=== PATIENT | female | born 1940 | race Caucasian/White ===

== ENCOUNTER 2018-02-11 06:17 | Inpatient (IN) | payer MEDICARE, BC ==
[2018-02-05 12:00] LABS: CLARITY,URINE CLOUDY (Clear); COLOR,URINE YELLOW (Yellow); GLUCOSE, URINE NEGATIVE (Neg); KETONES,URINE NEGATIVE (Neg); LEUKOCYTE ESTERASE ,URINE NEGATIVE (Neg); NITRITES, URINE NEGATIVE (Neg); OCCULT BLOOD,URINE NEGATIVE (Neg); PH,URINE 6.5 (4.8-8.0); PROTEIN,URINE NEGATIVE (Neg); UROBILINOGEN,URINE 0.2 E.U/dL (0.2-1.0)
[2018-02-05 12:06] LABS: BASOPHILS # (AUTO) 0.1 X10'3 (0-0.2); BASOPHILS % (AUTO) 0.6 % (0-1); EOSINOPHILS # (AUTO) 0.2 X10'3 (0-0.9); EOSINOPHILS % (AUTO) 2.1 % (0-6); LYMPHOCYTES # (AUTO) 2.8 X10'3 (1.1-4.8); LYMPHOCYTES % (AUTO) 30.5 % (21-51); MEAN CORPUSCULAR HEMOGLOBIN 32.2 PG (27.0-31.0); MEAN CORPUSCULAR HGB CONC 34.8 % (33.0-36.5); MEAN CORPUSCULAR VOLUME 92.5 FL (78-98); MONOCYTES # (AUTO) 0.5 X10'3 (0-0.9); NEUTROPHILS # (AUTO) 5.7 X10'3 (1.8-7.7); NEUTROPHILS % (AUTO) 61.8 % (42-75); PRE OP HEMATOCRIT 40.2 % (35.0-45.0); PRE OP PLATELET COUNT 361 X10'3 (140-440); RED BLOOD COUNT 4.34 X10'6 (4.20-5.60); RED CELL DISTRIBUTION WIDTH 12.8 % (11.5-14.5)
[2018-02-05 12:08] LABS: PRE OP PROTIME 10.1 SECONDS (9.0-12.0)
[2018-02-05 12:10] LABS: UA COLLECTION TYPE CLN CATCH MIDSTREAM
[2018-02-05 12:11] LABS: HEMOGLOBIN A1C 6.9 % (4.5-6.2)
[2018-02-05 12:12] LABS: ALBUMIN 3.9 G/DL (3.4-5.0); ALKALINE PHOSPHATASE 81 IU/L (46-116); BLOOD UREA NITROGEN 23 MG/DL (7-18); BUN/CREATININE RATIO 18.4 (6.6-38.0); CALCIUM 9.7 MG/DL (8.5-10.1); CHLORIDE 102 MMOL/L (99-107); CREATININE 1.25 MG/DL (0.40-0.90); PRE OP ALT 37 U/L (30-65); PRE OP ANION GAP 7 (8-16); PRE OP AST 26 U/L (10-37); PRE OP BILIRUB, TOTAL 0.5 MG/DL (0.0-1.0); PRE OP GLUCOSE 132 MG/DL (70-104); PRE OP SODIUM 142 MMOL/L (135-145); TOTAL CARBON DIOXIDE 32.6 MMOL/L (24-32); TOTAL PROTEIN 7.7 G/DL (6.4-8.2); eGFR 42 ML/MIN
[2018-02-05 12:13] LABS: MUCUS STRANDS FEW /LPF (Neg); SQUAMOUS EPITHELIAL CELL,UR FEW /LPF (FEW)
[2018-02-05 12:14] LABS: BACTERIA,URINE 1+ /HPF (Neg)
[2018-02-05 12:14] LABS: PRE OP POTASSIUM 3.2 MMOL/L (3.4-5.1)
[2018-02-05 12:24] LABS: RBC,URINE 0-2 /HPF (0-2); WBC,URINE 0-4 /HPF (0-4)
[2018-02-11] VITALS (20 sets, daily range): BP systolic 82–135; BP diastolic 44–80
[~2018-02-11] VITALS: Ht 149.9 cm; Wt 67.0 kg
[~2018-02-11 06:17] MED LIST: ASPI81TA52 PO; ATEN1TAB3 PO; ATOR20TA PO; Cefazolin 2GM/50ML dext iso,osmotic IVPB IV ONE; DOCUMENT DATE & TIME OF BETA-BLOCKER PO ONE; FENO160T13 PO; GLIP10TA11 PO; OMEP40CA37 PO; PIOG45TA5 PO; VANCOMYCIN INJ 1000 MG in NORMAL SALINE 250ml IV.SOLN IV ONE; acetaminophen 325mg tablet PO ONE; celeCOXIB 100mg capsule PO ONE; famotidine 20mg tablet PO ONE; gabapentin 300mg capsule PO ONE; metoclopramide 5 mg/ml inj IV ONE; oxyCODONE SR 10mg (sust. release) tab PO ONE; ringers solution, lacted 1,000 ML IV SCH
[2018-02-11] MEDS ORDERED: magnesium hydroxide 30ml (MOM) UD suspension PO PRN (06:50)
[2018-02-11] MEDS ORDERED: dextrose ORAL solution 15 GM/59 ML bottle PO PRN ×2 (06:50)
[2018-02-11] MEDS ORDERED: glucagon, human recombinant 1mg kit SUBCUT PRN (06:50)
[2018-02-11] MEDS ORDERED: MESSAGE TO PHARMACY PO ONE (06:50)
[2018-02-11] MEDS ORDERED: HYDROcodone/acetaminophen 10/325mg tab PO PRN ×2 (06:50)
[2018-02-11] MEDS ORDERED: dextrose 50%-water 50ml dispensing syringe IV PRN ×2 (06:50)
[2018-02-11] MEDS ORDERED: bisacodyl 10mg suppository rectal RC PRN (06:50)
[2018-02-11] MEDS ORDERED: acetaminophen 325mg tablet PO PRN (06:50)
[2018-02-11] MEDS ORDERED: diphenhydrAMINE 25mg capsule PO PRN ×2 (06:50)
[2018-02-11] MEDS ORDERED: HYDROmorphone 1 mg/ml syringe IV PRN ×2 (06:50)
[2018-02-11] MEDS ORDERED: ROPIVAcaine inj 250 MG, epiNEPHrine inj 0.5 MG, CloNIDine/PF inj 80 MCG in normal salin... SQ ONE (06:55)
[2018-02-11] MEDS ORDERED: LIDOcaine 1% (10mg/ml) 2ml vial ONE (06:58)
[2018-02-11] MEDS ORDERED: vancomycin 1,000mg inj ONE (07:08)
[2018-02-11] MEDS ORDERED: ketorolac trometh. 30mg/ml inj. ONE (07:08)
[2018-02-11] MEDS ORDERED: pantoprazole 40mg Tablet.DR PO PRN (07:30)
[2018-02-11] MEDS ORDERED: atenolol 50mg tablet PO SCH (08:00)
[2018-02-11] MEDS ORDERED: CHLORTHALIDONE PO SCH (08:00)
[2018-02-11] MEDS: atorvastatin 20mg tablet PO SCH (08:00)
[2018-02-11] MEDS ORDERED: ATENOLOL PO SCH (08:00)
[2018-02-11] MEDS: fenofibrate 145mg tablet PO SCH (08:00)
[2018-02-11 08:02] LABS: ISTAT CREATININE 0.9 mg/dL (0.6-1.1); ISTAT HGB 12.6 g/dl (12.0-16.0); ISTAT IONIZED CALCIUM 1.24 mmol/L (1.03-1.32); ISTAT K 3.4 mmol/L (3.5-5.1); POC BUN/CREATININE RATIO 22.2 (6.6-38.0)
[2018-02-11] MEDS ORDERED: tranexamic acid inj. 1,000 MG in normal saline 100ml IV soln 90 ML IV ONE (08:20)
[2018-02-11] MEDS ORDERED: atenolol 50mg tablet PO ONE (08:20)
[2018-02-11] MEDS ORDERED: tetracaine 1% (10mg/ml) pres. free inj. ONE (08:36)
[2018-02-11] MEDS ORDERED: BUPIVAcaine/PF 7.5mg/ml (0.75%) 10ml vial ONE (08:36)
[2018-02-11] MEDS ORDERED: MIDAZolam 1mg/ml 10ml vial ONE (08:38)
[2018-02-11] MEDS ORDERED: fentaNYL/PF 50MCG/1 ML 2ML syringe ONE (08:38)
[2018-02-11] MEDS ORDERED: morphine /PF 1mg/ml 10ml inj. ONE (08:42)
[2018-02-11] MEDS ORDERED: LIDOcaine 2% (20mg/ml) 5ml vial ONE (08:44)
[2018-02-11] MEDS ORDERED: propofol inj 20 ML IV ONE (08:44)
[2018-02-11] MEDS ORDERED: dexamethasone sod phosphate 4mg/ml inj. ONE (09:17)
[2018-02-11] MEDS ORDERED: ondansetron/PF 4mg/2ml inj ONE (09:17)
[2018-02-11] MEDS ORDERED: hydrALAZINE 20mg/ml inj. IV PRN (09:45)
[2018-02-11] MEDS ORDERED: labetalol 20mg/4ml (5mg/ml) syringe IV PRN (09:45)
[2018-02-11] MEDS ORDERED: ondansetron/PF 4mg/2ml inj IV PRN (09:45)
[2018-02-11] MEDS ORDERED: fentaNYL/PF 50MCG/1 ML 2ML syringe IV PRN ×2 (09:45)
[2018-02-11] MEDS ORDERED: morphine 4 MG/ML inj SYRINge IV PRN ×2 (09:45)
[2018-02-11] MEDS ORDERED: ringers solution, lacted 1,000 ML IV SCH (09:45)
[2018-02-11] MEDS ORDERED: albumin (Human) 5% 250ml 250 ML IV ONE (10:04)
[2018-02-11] MEDS: ondansetron/PF 4mg/2ml inj IV PRN (11:58)
[2018-02-11] MEDS: potassium cl 20mEq in 1/2 NS 1,000 ML IV SCH ×2 (12:29→20:22)
[2018-02-11] MEDS ORDERED: proCHLORperazine 10 MG/2 ml inj IV PRN (14:45)
[2018-02-11] MEDS: clindamycin-Cleocin 900mg/D5W 50 ML IV SCH ×2 (15:04→23:29)
[2018-02-11] MEDS ORDERED: vancomycin/NS 1 GM ADD-VANTAGE 250 ML IV SCH (20:00)
[2018-02-11] MEDS: sennosides 8.6mg tablet PO SCH (20:39)
[2018-02-11] MEDS: gabapentin 300mg capsule PO SCH (20:39)
[2018-02-12] MEDS: ondansetron/PF 4mg/2ml inj IV PRN (04:15)
[2018-02-12] MEDS: potassium cl 20mEq in 1/2 NS 1,000 ML IV SCH ×3 (04:29→20:29)
[2018-02-12 06:00] VITALS: BP 130/56
[2018-02-12 06:05] LABS: BASOPHILS % (AUTO) 0.3 % (0-1); EOSINOPHILS # (AUTO) 0.2 X10'3 (0-0.9); EOSINOPHILS % (AUTO) 1.3 % (0-6); HEMATOCRIT 29.7 % (35.0-45.0); HEMOGLOBIN 10.3 g/dl (12.0-16.0); LYMPHOCYTES # (AUTO) 1.5 X10'3 (1.1-4.8); LYMPHOCYTES % (AUTO) 12.4 % (21-51); MEAN CORPUSCULAR HEMOGLOBIN 32.3 PG (27.0-31.0); MEAN CORPUSCULAR HGB CONC 34.8 % (33.0-36.5); MEAN CORPUSCULAR VOLUME 92.8 FL (78-98); MEAN PLATELET VOLUME 8.2 FL (7.4-10.4); MONOCYTES # (AUTO) 0.9 X10'3 (0-0.9); MONOCYTES % (AUTO) 7.2 % (2-12); NEUTROPHILS # (AUTO) 9.3 X10'3 (1.8-7.7); NEUTROPHILS % (AUTO) 78.8 % (42-75); PLATELET COUNT 317 X10'3 (140-440); RED CELL DISTRIBUTION WIDTH 13.1 % (11.5-14.5); WHITE BLOOD COUNT 11.8 X10'3 (4.5-11.0)
[2018-02-12 06:12] LABS: ANION GAP 11 (8-16); CHLORIDE 105 MMOL/L (99-107); POTASSIUM 4.1 MMOL/L (3.5-5.1); SODIUM 139 MMOL/L (135-145); TOTAL CARBON DIOXIDE 23.5 MMOL/L (24-32)
[2018-02-12] MEDS: chlorthalidone 25mg tablet PO SCH (08:00)
[2018-02-12] MEDS: gabapentin 300mg capsule PO SCH ×3 (08:19→20:13)
[2018-02-12] MEDS: atenolol 50mg tablet PO SCH (08:19)
[2018-02-12] MEDS: atorvastatin 20mg tablet PO SCH (08:19)
[2018-02-12] MEDS: clindamycin-Cleocin 900mg/D5W 50 ML IV SCH (08:20)
[2018-02-12] MEDS: multivitamins, therapeutics tablet PO SCH (08:20)
[2018-02-12] MEDS: fenofibrate 145mg tablet PO SCH (08:20)
[2018-02-12] MEDS: ascorbic acid 500mg tablet PO SCH ×2 (08:20→20:13)
[2018-02-12] MEDS: aspirin 325mg tablet PO SCH (08:20)
[2018-02-12] MEDS: insulin Lispro (HumaLOG) vial - multi-dose SQ SCH ×3 (09:18→19:29)
[2018-02-12 10:00] VITALS: BP 100/50
[2018-02-12 14:00] VITALS: BP 106/43
[2018-02-12 18:00] VITALS: BP 106/49
[2018-02-12] MEDS: sennosides 8.6mg tablet PO SCH (20:14)
[2018-02-12 22:41] VITALS: BP 111/56
[2018-02-13 06:00] VITALS: BP 120/55
[2018-02-13 06:01] LABS: BASOPHILS % (AUTO) 0.3 % (0-1); EOSINOPHILS # (AUTO) 0.2 X10'3 (0-0.9); EOSINOPHILS % (AUTO) 2.2 % (0-6); HEMATOCRIT 27.7 % (35.0-45.0); HEMOGLOBIN 9.6 g/dl (12.0-16.0); LYMPHOCYTES # (AUTO) 1.9 X10'3 (1.1-4.8); MEAN CORPUSCULAR HGB CONC 34.7 % (33.0-36.5); MEAN CORPUSCULAR VOLUME 92.2 FL (78-98); MEAN PLATELET VOLUME 8.8 FL (7.4-10.4); MONOCYTES # (AUTO) 0.6 X10'3 (0-0.9); MONOCYTES % (AUTO) 6.7 % (2-12); NEUTROPHILS # (AUTO) 6.1 X10'3 (1.8-7.7); NEUTROPHILS % (AUTO) 68.8 % (42-75); PLATELET COUNT 232 X10'3 (140-440); RED BLOOD COUNT 3.01 X10'6 (4.20-5.60); RED CELL DISTRIBUTION WIDTH 13.1 % (11.5-14.5); WHITE BLOOD COUNT 8.8 X10'3 (4.5-11.0)
[2018-02-13] MEDS: multivitamins, therapeutics tablet PO SCH (08:34)
[2018-02-13] MEDS: gabapentin 300mg capsule PO SCH ×3 (08:35→20:38)
[2018-02-13] MEDS: atenolol 50mg tablet PO SCH (08:35)
[2018-02-13] MEDS: ascorbic acid 500mg tablet PO SCH ×2 (08:35→20:06)
[2018-02-13] MEDS: fenofibrate 145mg tablet PO SCH (08:35)
[2018-02-13] MEDS: atorvastatin 20mg tablet PO SCH (08:35)
[2018-02-13] MEDS: aspirin 325mg tablet PO SCH (08:35)
[2018-02-13] MEDS: chlorthalidone 25mg tablet PO SCH (08:35)
[2018-02-13] MEDS: insulin Lispro (HumaLOG) vial - multi-dose SQ SCH ×3 (08:57→19:05)
[2018-02-13 10:00] VITALS: BP 109/48
[2018-02-13 18:00] VITALS: BP 115/59
[2018-02-13] MEDS: sennosides 8.6mg tablet PO SCH (20:39)
[2018-02-13 22:00] VITALS: BP 114/57
[2018-02-14 06:00] VITALS: BP 113/53
[2018-02-14 06:04] LABS: BASOPHILS # (AUTO) 0.1 X10'3 (0-0.2); BASOPHILS % (AUTO) 0.6 % (0-1); EOSINOPHILS # (AUTO) 0.2 X10'3 (0-0.9); EOSINOPHILS % (AUTO) 1.9 % (0-6); HEMATOCRIT 31.9 % (35.0-45.0); LYMPHOCYTES # (AUTO) 2.2 X10'3 (1.1-4.8); LYMPHOCYTES % (AUTO) 22.6 % (21-51); MEAN CORPUSCULAR HGB CONC 34.6 % (33.0-36.5); MEAN CORPUSCULAR VOLUME 92.6 FL (78-98); MEAN PLATELET VOLUME 8.1 FL (7.4-10.4); MONOCYTES # (AUTO) 0.6 X10'3 (0-0.9); MONOCYTES % (AUTO) 6.3 % (2-12); NEUTROPHILS # (AUTO) 6.8 X10'3 (1.8-7.7); NEUTROPHILS % (AUTO) 68.6 % (42-75); PLATELET COUNT 276 X10'3 (140-440); RED BLOOD COUNT 3.44 X10'6 (4.20-5.60); RED CELL DISTRIBUTION WIDTH 13.1 % (11.5-14.5); WHITE BLOOD COUNT 9.9 X10'3 (4.5-11.0)
[2018-02-14] MEDS: aspirin 325mg tablet PO SCH (08:47)
[2018-02-14] MEDS: atorvastatin 20mg tablet PO SCH (08:47)
[2018-02-14] MEDS: gabapentin 300mg capsule PO SCH ×2 (08:47→12:52)
[2018-02-14] MEDS: ascorbic acid 500mg tablet PO SCH (08:47)
[2018-02-14] MEDS: multivitamins, therapeutics tablet PO SCH (08:48)
[2018-02-14] MEDS: chlorthalidone 25mg tablet PO SCH (08:48)
[2018-02-14] MEDS: atenolol 50mg tablet PO SCH (08:48)
[2018-02-14] MEDS: fenofibrate 145mg tablet PO SCH (08:48)
[2018-02-14 10:00] VITALS: BP 112/53
== END 2018-02-14 13:40 | disposition home or self-care (01) | DRG 470 ==
LOC: PAS IN 06:17 → EDSTATUS 07:30 → ORTHO 4S 12:20
PROVIDERS: ADMIT Orthopaedic Surgery; ATTEND Orthopaedic Surgery
PROC: 0SR906Z Replacement of Right Hip Joint with Oxidized Zirconium on Polyethylene Synthetic Substitute, Open Approach (ICD-10-PCS; principal; 2018-02-11 08:54)
DX: M16.11 Unilateral primary osteoarthritis, right hip (principal); E11.22 Type 2 diabetes mellitus with diabetic chronic kidney disease; N18.3 Chronic kidney disease, stage 3 (moderate); I12.9 Hypertensive chronic kidney disease with stage 1 through stage 4 chronic kidney disease, or unspecified chronic kidney disease; Z98.51 Tubal ligation status; Z88.1 Allergy status to other antibiotic agents; Z88.0 Allergy status to penicillin; Z88.8 Allergy status to other drugs, medicaments and biological substances; Z79.84 Long term (current) use of oral hypoglycemic drugs; Z79.899 Other long term (current) drug therapy; Z79.82 Long term (current) use of aspirin; Z82.49 Family history of ischemic heart disease and other diseases of the circulatory system
CPT/HCPCS: 36415; 71046; 72170; 80047; 80051; 80053; 81001; 82948; 83036; 85025; 85610; 85730; 86885; 86900; 86901; 87070; 97110; 97116; 97162; 97530; 97535; A4615; A6257; A6258; A7000; C1758; C1776; J0171; J0690; J0735; J0780; J1100; J1885; J2001; J2250; J2274; J2405; J2704; J2765; J2795; J3010; J3370; J3490; J7030; J7120; P9045; Q0163

== ENCOUNTER → 2018-05-06 | Outpatient (CLI) | payer MEDICARE ==
[~2018-05-06] MED LIST changes: -ASPI81TA52 PO; -Cefazolin 2GM/50ML dext iso,osmotic IVPB IV ONE; -DOCUMENT DATE & TIME OF BETA-BLOCKER PO ONE; -VANCOMYCIN INJ 1000 MG in NORMAL SALINE 250ml IV.SOLN IV ONE; -acetaminophen 325mg tablet PO ONE; -celeCOXIB 100mg capsule PO ONE; -famotidine 20mg tablet PO ONE; -gabapentin 300mg capsule PO ONE; -metoclopramide 5 mg/ml inj IV ONE; -oxyCODONE SR 10mg (sust. release) tab PO ONE; -ringers solution, lacted 1,000 ML IV SCH
== END | disposition home or self-care (01) ==
LOC: DIABETIC 00:29
PROVIDERS: ATTEND Family Medicine
DX: E11.65 Type 2 diabetes mellitus with hyperglycemia (principal); I25.2 Old myocardial infarction; Z88.0 Allergy status to penicillin; Z88.3 Allergy status to other anti-infective agents; Z88.2 Allergy status to sulfonamides; Z79.899 Other long term (current) drug therapy
CPT/HCPCS: G0108

== ENCOUNTER 2018-09-04 15:06 | Outpatient (CLI) | payer MEDICARE, BC ==
[2018-09-03 10:49] LABS: HEMOGLOBIN A1C 6.7 % (4.5-6.2)
[2018-09-03 10:54] LABS: BASOPHILS # (AUTO) 0.1 X10'3 (0-0.2); BASOPHILS % (AUTO) 0.8 % (0-1); EOSINOPHILS # (AUTO) 0.2 X10'3 (0-0.9); EOSINOPHILS % (AUTO) 2.2 % (0-6); LYMPHOCYTES # (AUTO) 3.4 X10'3 (1.1-4.8); LYMPHOCYTES % (AUTO) 32.8 % (21-51); MEAN CORPUSCULAR HEMOGLOBIN 32.2 PG (27.0-31.0); MEAN CORPUSCULAR HGB CONC 34.6 g/dL (33.0-36.5); MEAN CORPUSCULAR VOLUME 93.1 FL (78-98); MEAN PLATELET VOLUME 8.2 FL (7.4-10.4); MONOCYTES # (AUTO) 0.7 X10'3 (0-0.9); MONOCYTES % (AUTO) 7.1 % (2-12); NEUTROPHILS # (AUTO) 5.9 X10'3 (1.8-7.7); NEUTROPHILS % (AUTO) 57.1 % (42-75); PRE OP HEMOGLOBIN 14.2 g/dL (12.0-16.0); PRE OP PLATELET COUNT 444 X10'3 (140-440); RED CELL DISTRIBUTION WIDTH 13.2 % (11.5-14.5)
[2018-09-03 11:01] LABS: CLARITY,URINE CLEAR (Clear); COLOR,URINE YELLOW (Yellow); GLUCOSE, URINE NEGATIVE (Neg); KETONES,URINE NEGATIVE (Neg); LEUKOCYTE ESTERASE ,URINE NEGATIVE (Neg); NITRITES, URINE NEGATIVE (Neg); OCCULT BLOOD,URINE NEGATIVE (Neg); PROTEIN,URINE NEGATIVE (Neg); UROBILINOGEN,URINE 0.2 E.U/dL (0.2-1.0)
[2018-09-03 11:02] LABS: ALKALINE PHOSPHATASE 105 IU/L (46-116); BLOOD UREA NITROGEN 26 MG/DL (7-18); BUN/CREATININE RATIO 18.8 (6.6-38.0); CALCIUM 9.2 MG/DL (8.5-10.1); CHLORIDE 99 MMOL/L (99-107); CREATININE 1.38 MG/DL (0.40-0.90); PRE OP ALT 37 U/L (30-65); PRE OP ANION GAP 12 (8-16); PRE OP AST 25 U/L (10-37); PRE OP BILIRUB, TOTAL 0.6 MG/DL (0.0-1.0); PRE OP GLUCOSE 101 MG/DL (70-104); PRE OP SODIUM 137 MMOL/L (135-145); TOTAL CARBON DIOXIDE 25.8 MMOL/L (24-32); TOTAL PROTEIN 7.9 G/DL (6.4-8.2); eGFR 37 ML/MIN
[2018-09-03 11:02] LABS: UA COLLECTION TYPE NON-SPECIFIED
[2018-09-03 11:08] LABS: PRE OP POTASSIUM 3.2 MMOL/L (3.4-5.1)
[~2018-09-04 15:06] MED LIST changes: -OMEP40CA37 PO
== END 2018-09-04 23:59 | disposition home or self-care (01) ==
LOC: PRE-OP 15:06 → EDSTATUS 09-09 11:30
PROVIDERS: ATTEND Orthopaedic Surgery
DX: Z01.818 Encounter for other preprocedural examination (principal); M17.12 Unilateral primary osteoarthritis, left knee; I25.2 Old myocardial infarction; E11.9 Type 2 diabetes mellitus without complications; Z79.82 Long term (current) use of aspirin; Z88.0 Allergy status to penicillin; Z88.2 Allergy status to sulfonamides; Z88.8 Allergy status to other drugs, medicaments and biological substances; Z79.01 Long term (current) use of anticoagulants; Z98.890 Other specified postprocedural states
CPT/HCPCS: 36415; 71046; 80053; 81003; 83036; 85025; 85610; 85730; 86885; 86900; 86901; 87070; 93005

== ENCOUNTER 2018-09-07 07:20 | Observation (INO) | payer MEDICARE, BC ==
[~2018-09-07] VITALS: Ht 149.9 cm; Wt 74.0 kg
[2018-09-07] MEDS ORDERED: morphine 4 MG/ML inj SYRINge IV ONE (07:50)
[2018-09-07] MEDS ORDERED: ondansetron/PF 4mg/2ml inj IV ONE (07:50)
[2018-09-07 08:00] LABS: BASOPHILS # (AUTO) 0.1 X10'3 (0-0.2); BASOPHILS % (AUTO) 0.7 % (0-1); EOSINOPHILS # (AUTO) 0.1 X10'3 (0-0.9); EOSINOPHILS % (AUTO) 1.4 % (0-6); HEMATOCRIT 40.8 % (35.0-45.0); LYMPHOCYTES # (AUTO) 2.9 X10'3 (1.1-4.8); LYMPHOCYTES % (AUTO) 33.1 % (21-51); MEAN CORPUSCULAR HGB CONC 34.3 g/dL (33.0-36.5); MEAN CORPUSCULAR VOLUME 93.1 FL (78-98); MEAN PLATELET VOLUME 7.9 FL (7.4-10.4); MONOCYTES # (AUTO) 0.5 X10'3 (0-0.9); MONOCYTES % (AUTO) 5.7 % (2-12); NEUTROPHILS # (AUTO) 5.1 X10'3 (1.8-7.7); NEUTROPHILS % (AUTO) 59.1 % (42-75); PLATELET COUNT 419 X10'3 (140-440); RED BLOOD COUNT 4.38 X10'6 (4.20-5.60); RED CELL DISTRIBUTION WIDTH 13.7 % (11.5-14.5); WHITE BLOOD COUNT 8.7 X10'3 (4.5-11.0)
[2018-09-07 08:02] LABS: ALANINE AMINOTRANSFERASE 29 U/L (12-78); ALBUMIN/GLOBULIN RATIO 1.1 (1.1-1.5); ALKALINE PHOSPHATASE 99 IU/L (46-116); ANION GAP 10 (8-16); ASPARTATE AMINO TRANSFERASE 22 U/L (10-37); BILIRUBIN,TOTAL 0.4 MG/DL (0.1-1.0); BLOOD UREA NITROGEN 21 MG/DL (7-18); BUN/CREATININE RATIO 18.1 (6.6-38.0); CALCIUM 9.1 MG/DL (8.5-10.1); CHLORIDE 104 MMOL/L (99-107); CREATININE 1.16 MG/DL (0.40-0.90); GLUCOSE 148 MG/DL (70-104); POTASSIUM 3.2 MMOL/L (3.5-5.1); SODIUM 139 MMOL/L (135-145); TOTAL CARBON DIOXIDE 25.4 MMOL/L (24-32); TOTAL PROTEIN 7.7 G/DL (6.4-8.2); eGFR 45 ML/MIN
[2018-09-07 08:09] LABS: LIPASE 176 U/L (73-393); TROPONIN I < 0.04 NG/ML (0.0-0.05)
[2018-09-07] MEDS ORDERED: normal saline 1000ml 1,000 ML IV ONE (08:55)
[2018-09-07 10:38] LABS: CLARITY,URINE CLOUDY (Clear); COLOR,URINE YELLOW (Yellow); GLUCOSE, URINE NEGATIVE (Neg); KETONES,URINE NEGATIVE (Neg); LEUKOCYTE ESTERASE ,URINE SMALL (Neg); NITRITES, URINE NEGATIVE (Neg); OCCULT BLOOD,URINE LARGE (Neg); PROTEIN,URINE TRACE mg/dl (Neg); UROBILINOGEN,URINE 0.2 E.U/dL (0.2-1.0)
[2018-09-07 10:45] LABS: UA COLLECTION TYPE CLN CATCH MIDSTREAM
[2018-09-07 10:46] LABS: BACTERIA,URINE 3+ /HPF (Neg); RBC,URINE TNTC /HPF (0-2); SQUAMOUS EPITHELIAL CELL,UR FEW /LPF (FEW)
[2018-09-07 10:47] LABS: WBC CLUMPS,URINE MODERATE /HPF (NEGATIVE)
[2018-09-07] MEDS ORDERED: CefTRIAXone 2gm/D5W 50ml 50 ML IV ONE (11:10)
[2018-09-07] MEDS ORDERED: morphine 4 MG/ML inj SYRINge IV PRN (11:25)
[2018-09-07] MEDS ORDERED: mag hydrox/Alum hydrox/simeth 30ml oral suspension PO PRN (11:25)
[2018-09-07] MEDS ORDERED: magnesium hydroxide 30ml (MOM) UD suspension PO PRN (11:25)
[2018-09-07] MEDS ORDERED: ondansetron/PF 4mg/2ml inj IV PRN (11:25)
[2018-09-07] MEDS ORDERED: acetaminophen 325mg tablet PO PRN (11:25)
[2018-09-07] MEDS: normal saline 1000ml 1,000 ML IV SCH ×2 (11:31→21:23)
[2018-09-07] MEDS ORDERED: ASPI81TA52 PO (11:35)
--- NOTE | 2018-09-07 12:19 | NUR ---
Received report from SIMIN Collins RN.
--- NOTE | 2018-09-07 12:40 | NUR ---
Received patient from ER. Patient is alert and oriented; vitals are stable.
[2018-09-07 12:49] VITALS: BP 115/58
--- NOTE | 2018-09-07 18:38 | NUR ---
Problems reprioritized. Patient report given, questions answered & plan of care reviewed with EFREM Kaminski.
[2018-09-07] MEDS ORDERED: magnesium Cl slow-release 64mg tablet PO PRN (18:40)
[2018-09-07] MEDS ORDERED: dextrose 50%-water 50ml dispensing syringe IV PRN ×2 (18:40)
[2018-09-07] MEDS ORDERED: MESSAGE TO PHARMACY PO ONE (18:40)
[2018-09-07] MEDS ORDERED: magnesium 4gm in 100ml NS 100 ML IV PRN (18:40)
[2018-09-07] MEDS ORDERED: insulin Lispro (HumaLOG) vial - multi-dose SQ SCH (18:40)
[2018-09-07] MEDS ORDERED: potassium Cl 40MEQ/NS 500ml 500 ML IV PRN ×2 (18:40)
[2018-09-07] MEDS ORDERED: magnesium 2GM in 50ml NS 50 ML IV PRN (18:40)
[2018-09-07] MEDS ORDERED: glucagon, human recombinant 1mg kit SUBCUT PRN (18:40)
[2018-09-07] MEDS ORDERED: potassium Cl 20 mEq SR tablet PO PRN (18:40)
[2018-09-07] MEDS ORDERED: dextrose ORAL solution 15 GM/59 ML bottle PO PRN ×2 (18:40)
[2018-09-07 20:00] VITALS: BP 109/53
[2018-09-07] MEDS: tamsulosin 0.4mg capsule PO SCH (20:59)
[2018-09-07] MEDS: heparin, porcine 5000 units/ml vial SQ SCH (21:00)
[2018-09-07] MEDS: insulin glargine (Lantus) pen - multi-dose SQ SCH (21:00)
--- NOTE | 2018-09-07 22:27 | NUR ---
Patient in room [facility]. I have received report from EFREM Dumont and had the opportunity to ask questions and assume patient care. Addendum: 09/07/18 at 2227 by Yamilex Harris RN Amended: Links added.
--- NOTE | 2018-09-07 22:31 | NUR ---
straining pts urine. looks like 1 small sand granule in strainer.
[2018-09-07 23:59] VITALS: BP 123/52
[2018-09-08 05:21] LABS: ANION GAP 7 (8-16); BLOOD UREA NITROGEN 15 MG/DL (7-18); BUN/CREATININE RATIO 14.6 (6.6-38.0); CALCIUM 8.5 MG/DL (8.5-10.1); CHLORIDE 106 MMOL/L (99-107); CREATININE 1.03 MG/DL (0.40-0.90); GLUCOSE 131 MG/DL (70-104); MAGNESIUM 1.7 MG/DL (1.5-2.4); POTASSIUM 3.4 MMOL/L (3.5-5.1); SODIUM 139 MMOL/L (135-145); TOTAL CARBON DIOXIDE 26.1 MMOL/L (24-32); eGFR 52 ML/MIN
[2018-09-08 05:27] LABS: BASOPHILS # (AUTO) 0.1 X10'3 (0-0.2); BASOPHILS % (AUTO) 1.1 % (0-1); EOSINOPHILS # (AUTO) 0.1 X10'3 (0-0.9); EOSINOPHILS % (AUTO) 1.8 % (0-6); HEMATOCRIT 33.8 % (35.0-45.0); HEMOGLOBIN 11.5 g/dl (12.0-16.0); LYMPHOCYTES % (AUTO) 40.5 % (21-51); MEAN CORPUSCULAR HEMOGLOBIN 31.9 PG (27.0-31.0); MEAN CORPUSCULAR HGB CONC 34.1 g/dL (33.0-36.5); MEAN CORPUSCULAR VOLUME 93.7 FL (78-98); MEAN PLATELET VOLUME 8.6 FL (7.4-10.4); MONOCYTES # (AUTO) 0.4 X10'3 (0-0.9); MONOCYTES % (AUTO) 5.6 % (2-12); NEUTROPHILS # (AUTO) 3.8 X10'3 (1.8-7.7); PLATELET COUNT 316 X10'3 (140-440); RED BLOOD COUNT 3.61 X10'6 (4.20-5.60); RED CELL DISTRIBUTION WIDTH 13.6 % (11.5-14.5); WHITE BLOOD COUNT 7.4 X10'3 (4.5-11.0)
--- NOTE | 2018-09-08 06:05 | NUR ---
Patient in room [facility]. I have received report from EFREM Kaminski and had the opportunity to ask questions and assume patient care.
--- NOTE | 2018-09-08 06:12 | NUR ---
Problems reprioritized. Patient report given, questions answered & plan of care reviewed with EFREM Dumont. Addendum: 09/08/18 at 0613 by Yamilex Harris RN Amended: Links added.
[2018-09-08] MEDS: normal saline 1000ml 1,000 ML IV SCH ×2 (07:23→16:48)
[2018-09-08 07:27] VITALS: BP 115/49
[2018-09-08] MEDS: CefTRIAXone/D5W-Rocephin 1gm 50 ML IV SCH (07:42)
[2018-09-08] MEDS: atorvastatin 20mg tablet PO SCH (07:44)
[2018-09-08] MEDS: atenolol 50mg tablet PO SCH (07:44)
[2018-09-08] MEDS: chlorthalidone 25mg tablet PO SCH (07:44)
[2018-09-08] MEDS: fenofibrate 145mg tablet PO SCH (07:45)
[2018-09-08] MEDS: potassium Cl 20 mEq SR tablet PO PRN ×3 (07:54→17:39)
[2018-09-08] MEDS ORDERED: pioglitazone 45mg tablet PO SCH (08:00)
[2018-09-08] MEDS: heparin, porcine 5000 units/ml vial SQ SCH ×2 (08:00→20:13)
[2018-09-08] MEDS: aspirin 81mg tablet.DR PO SCH (08:00)
[2018-09-08 12:15] VITALS: BP 103/36
--- NOTE | 2018-09-08 18:00 | NUR ---
Problems reprioritized. Patient report given, questions answered & plan of care reviewed with EFREM Singh.
--- NOTE | 2018-09-08 18:05 | NUR ---
Received report from EFREM Dumont. Patient is awake and alert on room air, in no apparent distress. Call light and items of frequent use within reach. Will continue to monitor.
[2018-09-08 20:00] VITALS: BP 133/56
[2018-09-08] MEDS: lactobacillus rhamnosus 10,000 MMU CELLS/CAPSULE PO SCH (20:13)
[2018-09-08] MEDS: tamsulosin 0.4mg capsule PO SCH (20:14)
[2018-09-08] MEDS: insulin glargine (Lantus) pen - multi-dose SQ SCH (21:00)
[2018-09-09] VITALS: BP 110/54
[2018-09-09] MEDS: normal saline 1000ml 1,000 ML IV SCH (01:06)
[2018-09-09 05:36] LABS: BASOPHILS % (AUTO) 0.8 % (0-1); EOSINOPHILS # (AUTO) 0.2 X10'3 (0-0.9); HEMATOCRIT 36.5 % (35.0-45.0); HEMOGLOBIN 12.5 g/dl (12.0-16.0); LYMPHOCYTES # (AUTO) 2.6 X10'3 (1.1-4.8); LYMPHOCYTES % (AUTO) 43.6 % (21-51); MEAN CORPUSCULAR HEMOGLOBIN 31.9 PG (27.0-31.0); MEAN CORPUSCULAR HGB CONC 34.2 g/dL (33.0-36.5); MEAN CORPUSCULAR VOLUME 93.5 FL (78-98); MEAN PLATELET VOLUME 8.5 FL (7.4-10.4); MONOCYTES # (AUTO) 0.4 X10'3 (0-0.9); MONOCYTES % (AUTO) 6.9 % (2-12); NEUTROPHILS # (AUTO) 2.7 X10'3 (1.8-7.7); NEUTROPHILS % (AUTO) 45.7 % (42-75); PLATELET COUNT 346 X10'3 (140-440); RED BLOOD COUNT 3.91 X10'6 (4.20-5.60); RED CELL DISTRIBUTION WIDTH 13.3 % (11.5-14.5)
[2018-09-09 05:37] LABS: ALBUMIN 3.2 G/DL (3.4-5.0); ANION GAP 9 (8-16); BLOOD UREA NITROGEN 14 MG/DL (7-18); BUN/CREATININE RATIO 12.3 (6.6-38.0); CALCIUM 8.8 MG/DL (8.5-10.1); CHLORIDE 108 MMOL/L (99-107); CREATININE 1.14 MG/DL (0.40-0.90); GLUCOSE 127 MG/DL (70-104); MAGNESIUM 1.7 MG/DL (1.5-2.4); POTASSIUM 3.6 MMOL/L (3.5-5.1); SODIUM 142 MMOL/L (135-145); TOTAL CARBON DIOXIDE 25.1 MMOL/L (24-32); eGFR 46 ML/MIN
--- NOTE | 2018-09-09 06:15 | NUR ---
Problems reprioritized. Patient report given, questions answered & plan of care reviewed with Julita TOPETE.
[2018-09-09 07:00] VITALS: BP 126/52
[2018-09-09] MEDS: lactobacillus rhamnosus 10,000 MMU CELLS/CAPSULE PO SCH (08:17)
[2018-09-09] MEDS: aspirin 81mg tablet.DR PO SCH (08:18)
[2018-09-09] MEDS: atenolol 50mg tablet PO SCH (08:18)
[2018-09-09] MEDS: chlorthalidone 25mg tablet PO SCH (08:19)
[2018-09-09] MEDS: fenofibrate 145mg tablet PO SCH (08:20)
[2018-09-09] MEDS: atorvastatin 20mg tablet PO SCH (08:22)
[2018-09-09] MEDS: CefTRIAXone/D5W-Rocephin 1gm 50 ML IV SCH (08:22)
[2018-09-09] MEDS: heparin, porcine 5000 units/ml vial SQ SCH (08:22)
[2018-09-09 11:00] VITALS: BP 127/50
[2018-09-09] MEDS ORDERED: CIPR-230 PO (11:39)
== END 2018-09-09 13:45 | disposition home or self-care (01) ==
LOC: ER 07:20 → INTOOBSV 11:23 → ED HOLD 11:23 → SUR 3N 12:27
PROVIDERS: ADMIT Family Medicine; ATTEND Family Medicine
DX: N13.2 Hydronephrosis with renal and ureteral calculous obstruction (principal); N39.0 Urinary tract infection, site not specified; E78.5 Hyperlipidemia, unspecified; N12 Tubulo-interstitial nephritis, not specified as acute or chronic; I10 Essential (primary) hypertension; E11.9 Type 2 diabetes mellitus without complications; K46.9 Unspecified abdominal hernia without obstruction or gangrene; N28.1 Cyst of kidney, acquired; N20.0 Calculus of kidney
CPT/HCPCS: 36415; 74176; 80048; 80053; 81001; 82948; 83605; 83690; 83735; 84484; 85025; 85610; 87070; 87077; 87088; 87186; 96361; 96365; 96366; 96372; 96375; 99284; G0378; J0696; J1644; J2270; J2405; J7030; 96374; 99285; J1815

== ENCOUNTER 2018-11-04 06:41 | Inpatient (IN) | payer MEDICARE, BC ==
[2018-10-23 13:09] LABS: BASOPHILS # (AUTO) 0.1 X10'3 (0-0.2); BASOPHILS % (AUTO) 0.9 % (0-1); EOSINOPHILS # (AUTO) 0.1 X10'3 (0-0.9); EOSINOPHILS % (AUTO) 1.6 % (0-6); LYMPHOCYTES # (AUTO) 3.6 X10'3 (1.1-4.8); LYMPHOCYTES % (AUTO) 37.4 % (21-51); MEAN CORPUSCULAR HEMOGLOBIN 31.8 PG (27.0-31.0); MEAN CORPUSCULAR VOLUME 93.6 FL (78-98); MEAN PLATELET VOLUME 8.1 FL (7.4-10.4); MONOCYTES # (AUTO) 0.7 X10'3 (0-0.9); MONOCYTES % (AUTO) 7.7 % (2-12); NEUTROPHILS % (AUTO) 52.4 % (42-75); PRE OP HEMATOCRIT 40.2 % (35.0-45.0); PRE OP HEMOGLOBIN 13.6 g/dL (12.0-16.0); PRE OP PLATELET COUNT 417 X10'3 (140-440); RED BLOOD COUNT 4.29 X10'6 (4.20-5.60)
[2018-10-23 13:11] LABS: CLARITY,URINE CLEAR (Clear); COLOR,URINE YELLOW (Yellow); GLUCOSE, URINE NEGATIVE (Neg); KETONES,URINE NEGATIVE (Neg); LEUKOCYTE ESTERASE ,URINE NEGATIVE (Neg); NITRITES, URINE NEGATIVE (Neg); OCCULT BLOOD,URINE NEGATIVE (Neg); PROTEIN,URINE NEGATIVE (Neg); UROBILINOGEN,URINE 0.2 E.U/dL (0.2-1.0)
[2018-10-23 13:18] LABS: UA COLLECTION TYPE NON-SPECIFIED
[2018-10-23 13:34] LABS: HEMOGLOBIN A1C 6.8 % (4.5-6.2)
[2018-10-23 13:36] LABS: ALBUMIN 3.8 G/DL (3.4-5.0); ALBUMIN/GLOBULIN RATIO 1.1 (1.1-1.5); ALKALINE PHOSPHATASE 92 IU/L (46-116); BLOOD UREA NITROGEN 22 MG/DL (7-18); BUN/CREATININE RATIO 18.6 (6.6-38.0); CALCIUM 9.3 MG/DL (8.5-10.1); CHLORIDE 102 MMOL/L (99-107); CREATININE 1.18 MG/DL (0.40-0.90); PRE OP ALT 33 U/L (30-65); PRE OP ANION GAP 8 (8-16); PRE OP AST 24 U/L (10-37); PRE OP BILIRUB, TOTAL 0.4 MG/DL (0.0-1.0); PRE OP GLUCOSE 121 MG/DL (70-104); PRE OP POTASSIUM 3.5 MMOL/L (3.4-5.1); PRE OP SODIUM 138 MMOL/L (135-145); TOTAL CARBON DIOXIDE 27.6 MMOL/L (24-32); TOTAL PROTEIN 7.4 G/DL (6.4-8.2); eGFR 44 ML/MIN
[2018-11-04] VITALS (18 sets, daily range): BP systolic 92–121; BP diastolic 43–68
[~2018-11-04] VITALS: Ht 149.9 cm; Wt 68.8 kg
[~2018-11-04 06:41] MED LIST changes: +ASPI81TA52 PO; +DOCUMENT DATE & TIME OF BETA-BLOCKER PO ONE; +EZET10TA14 PO; +MESSAGE TO NURSING PO ONE; +POTA10TA19 PO; +VANCOMYCIN INJ 1000 MG in NORMAL SALINE 250ml IV.SOLN IV ONE; +acetaminophen 325mg tablet PO ONE; +cefazolin/dext.iso 2gm/100 ML IV ONE; +celeCOXIB 100mg capsule PO ONE; +famotidine 20mg tablet PO ONE; +gabapentin 300mg capsule PO ONE; +metoclopramide 5 mg/ml inj IV ONE; +oxyCODONE SR 10mg (sust. release) tab -2 tabs (20mg) PO ONE; +ringers solution, lacted 1,000 ML IV SCH; +tranexamic acid inj. 1,000 MG in normal saline 100 ML IV ONE
[2018-11-04] MEDS ORDERED: acetaminophen 325mg tablet PO PRN (07:15)
[2018-11-04] MEDS ORDERED: magnesium hydroxide 30ml (MOM) UD suspension PO PRN (07:15)
[2018-11-04] MEDS ORDERED: dextrose ORAL solution 15 GM/59 ML bottle PO PRN ×2 (07:15)
[2018-11-04] MEDS ORDERED: dextrose 50%-water 50ml dispensing syringe IV PRN ×2 (07:15)
[2018-11-04] MEDS ORDERED: MESSAGE TO PHARMACY PO ONE (07:15)
[2018-11-04] MEDS ORDERED: oxyCODONE/APAP 10/325mg tablet PO PRN (07:15)
[2018-11-04] MEDS ORDERED: HYDROmorphone inj. 0.5 MG/0.5 ML DISP.SYRIN IV PRN (07:15)
[2018-11-04] MEDS ORDERED: bisacodyl 10mg suppository rectal RC PRN (07:15)
[2018-11-04] MEDS ORDERED: glucagon, human recombinant 1mg kit SUBCUT PRN (07:15)
[2018-11-04] MEDS ORDERED: HYDROmorphone 1 mg/ml syringe IV PRN (07:15)
[2018-11-04] MEDS ORDERED: insulin Lispro (HumaLOG) vial - multi-dose SQ SCH (07:15)
[2018-11-04] MEDS ORDERED: diphenhydrAMINE 25mg capsule PO PRN ×2 (07:15)
[2018-11-04] MEDS ORDERED: vancomycin 1,000mg inj ONE ×2 (07:46→09:36)
[2018-11-04] MEDS ORDERED: CHLORTHALIDONE PO SCH (08:00)
[2018-11-04] MEDS ORDERED: vancomycin/NS 1 GM ADD-VANTAGE 250 ML IV SCH (08:00)
[2018-11-04] MEDS ORDERED: ATENOLOL PO SCH (08:00)
[2018-11-04] MEDS: ceFAZolin 1GM/D5W- ADD-VANTAGE 50 ML IV SCH ×2 (08:00→16:58)
[2018-11-04] MEDS ORDERED: EPINEPHRINE SQ ONE (08:35)
[2018-11-04] MEDS ORDERED: ROPIVACAINE SQ ONE (08:35)
[2018-11-04] MEDS ORDERED: NORMAL SALINE SQ ONE (08:35)
[2018-11-04] MEDS ORDERED: MIDAZolam 1mg/ml 10ml vial ONE (08:38)
[2018-11-04] MEDS ORDERED: morphine /PF 1mg/ml 10ml inj. ONE (08:38)
[2018-11-04] MEDS ORDERED: propofol inj 20 ML IV ONE (09:07)
[2018-11-04] MEDS ORDERED: LIDOcaine 1%/PF 5ML 10 MG/ML VIAL ONE (09:07)
[2018-11-04] MEDS ORDERED: ePHEDrine 50MG/ML INJ. ONE (09:20)
[2018-11-04] MEDS ORDERED: ringers solution, lacted 1,000 ML IV SCH (09:36)
[2018-11-04] MEDS ORDERED: ROPIVAcaine 0.2%/PF PAIN PUMP 400 ML IJ SCH (09:36)
[2018-11-04] MEDS ORDERED: hydrALAZINE 20mg/ml inj. IV PRN (09:40)
[2018-11-04] MEDS ORDERED: dexamethasone sod phosphate 4mg/ml inj. ONE (09:40)
[2018-11-04] MEDS ORDERED: proCHLORperazine 10 MG/2 ml inj IV PRN ×2 (09:40)
[2018-11-04] MEDS ORDERED: fentaNYL/PF 50MCG/1 ML 2ML syringe IV PRN ×2 (09:40)
[2018-11-04] MEDS ORDERED: labetalol 20mg/4ml (5mg/ml) syringe IV PRN (09:40)
[2018-11-04] MEDS ORDERED: ondansetron/PF 4mg/2ml inj IV PRN ×2 (09:40→09:45)
[2018-11-04] MEDS ORDERED: proMETHazine 25mg rectal suppository RC PRN ×2 (09:40)
[2018-11-04] MEDS ORDERED: morphine 4 MG/ML inj SYRINge IV PRN ×2 (09:40)
[2018-11-04] MEDS ORDERED: ondansetron/PF 4mg/2ml inj ONE (09:40)
[2018-11-04] MEDS ORDERED: diphenhydrAMINE 50 mg/ml inj IV PRN (09:45)
--- NOTE | 2018-11-04 10:35 | NUR ---
Received from OR via bed, accompanied by Anesthesiologist. Report received. Initial physical assessment done and recorded.
[2018-11-04] MEDS ORDERED: ROPIVAcaine 0.5% (5mg/ml) 30ml vial ONE (10:55)
[2018-11-04] MEDS ORDERED: tetracaine 1% (10mg/ml) pres. free inj. ONE (10:57)
--- NOTE | 2018-11-04 11:45 | NUR ---
Discharge criteria met, report to receiving floor. Transferred to room in stable condition.
[2018-11-04] MEDS: gabapentin 300mg capsule PO SCH ×3 (12:51→21:00)
[2018-11-04] MEDS: potassium cl 20mEq in 1/2 NS 1,000 ML IV SCH ×3 (15:13→20:15)
[2018-11-04] MEDS ORDERED: tranexamic acid inj. 700 MG in normal saline 100ml IV soln 100 ML IV ONE (15:18)
[2018-11-04] MEDS: ondansetron/PF 4mg/2ml inj IV PRN (15:32)
--- NOTE | 2018-11-04 18:44 | NUR ---
RECEIVED REPORT FROM TIMA TOPETE AND ASSUMED PATIENT CARE
[2018-11-04] MEDS: metoclopramide 5 mg/ml inj IV PRN (20:15)
[2018-11-04] MEDS: insulin glargine (Lantus) pen - multi-dose SQ SCH (21:00)
[2018-11-04] MEDS: sennosides 8.6mg tablet PO SCH (21:00)
--- NOTE | 2018-11-04 21:12 | NUR ---
PATIENT HAS MET THE DIABETIC PROTOCOL WITH TWO CONSECUTIVE BLOOD SUGARS OVER 160. EDUCATION PROVIDED ON HOSPITALS HYPERGLYCEMIC PROTOCOL. AT THIS TIME SHE IS REFUSING ANY INSULIN SHE IS NAUSEATED, NOT TOLERATING ANY PO INTAKE AND HASN'T EATEN ALL DAY. AGREEABLE TO MONITORING AND INSULIN IN AM IF FEELING BETTER.
[2018-11-04] MEDS ORDERED: VANCOMYCIN INJ 1000 MG in NORMAL SALINE 250ml IV.SOLN IV ONE (22:55)
[2018-11-04] MEDS ORDERED: ceFAZolin 1GM/D5W- ADD-VANTAGE 50 ML IV ONE (23:59)
[2018-11-05] MEDS: metoclopramide 5 mg/ml inj IV PRN (04:17)
[2018-11-05 06:00] VITALS: BP 134/74
--- NOTE | 2018-11-05 06:00 | NUR ---
Patient in room [facility]. I have received report from OSCAR TOPETE and had the opportunity to ask questions and assume patient care. Addendum: 11/05/18 at 1118 by Mitzi Perez RN JEFFREY TOPETE
[2018-11-05 07:12] LABS: BASOPHILS # (AUTO) 0.1 X10'3 (0-0.2); BASOPHILS % (AUTO) 0.4 % (0-1); EOSINOPHILS % (AUTO) 0 % (0-6); HEMATOCRIT 30.5 % (35.0-45.0); HEMOGLOBIN 10.5 g/dl (12.0-16.0); LYMPHOCYTES # (AUTO) 1.7 X10'3 (1.1-4.8); LYMPHOCYTES % (AUTO) 12.1 % (21-51); MEAN CORPUSCULAR HEMOGLOBIN 32.2 PG (27.0-31.0); MEAN CORPUSCULAR HGB CONC 34.3 g/dL (33.0-36.5); MEAN CORPUSCULAR VOLUME 93.7 FL (78-98); MEAN PLATELET VOLUME 7.9 FL (7.4-10.4); MONOCYTES # (AUTO) 0.9 X10'3 (0-0.9); MONOCYTES % (AUTO) 6.7 % (2-12); NEUTROPHILS # (AUTO) 11.2 X10'3 (1.8-7.7); NEUTROPHILS % (AUTO) 80.8 % (42-75); PLATELET COUNT 314 X10'3 (140-440); RED BLOOD COUNT 3.25 X10'6 (4.20-5.60); RED CELL DISTRIBUTION WIDTH 13.2 % (11.5-14.5); WHITE BLOOD COUNT 13.9 X10'3 (4.5-11.0)
[2018-11-05] MEDS: potassium cl 20mEq in 1/2 NS 1,000 ML IV SCH ×3 (07:13→23:13)
[2018-11-05 07:44] LABS: ANION GAP 10 (8-16); CHLORIDE 103 MMOL/L (99-107); POTASSIUM 3.3 MMOL/L (3.5-5.1); SODIUM 138 MMOL/L (135-145); TOTAL CARBON DIOXIDE 25.2 MMOL/L (24-32)
[2018-11-05] MEDS: chlorthalidone 25mg tablet PO SCH (08:00)
[2018-11-05] MEDS: atenolol 50mg tablet PO SCH (08:00)
[2018-11-05] MEDS ORDERED: potassium Cl 40MEQ/NS 500ml 500 ML IV PRN ×2 (08:15)
[2018-11-05] MEDS ORDERED: potassium Cl 20 mEq SR tablet PO PRN ×2 (08:15)
[2018-11-05] MEDS: fenofibrate 145mg tablet PO SCH (08:26)
[2018-11-05] MEDS: aspirin 325mg tablet PO SCH (08:26)
[2018-11-05] MEDS: ascorbic acid 500mg tablet PO SCH ×2 (08:26→20:41)
[2018-11-05] MEDS: potassium chloride 10mEq ER tablet PO SCH (08:26)
[2018-11-05] MEDS: gabapentin 300mg capsule PO SCH ×3 (08:26→20:42)
[2018-11-05] MEDS: ezetimibe 10mg tablet PO SCH (08:26)
[2018-11-05] MEDS: multivitamins, therapeutics tablet PO SCH (08:26)
[2018-11-05] MEDS: atorvastatin 20mg tablet PO SCH (08:26)
[2018-11-05] MEDS: ondansetron/PF 4mg/2ml inj IV PRN (08:28)
[2018-11-05 10:00] VITALS: BP 103/40
[2018-11-05] MEDS: oxyCODONE/APAP 10/325mg tablet PO PRN ×2 (12:15→20:42)
[2018-11-05 14:00] VITALS: BP 101/57
--- NOTE | 2018-11-05 15:12 | NUR ---
Joint replacement consult: Pt seen by FAY for written/verbal high protein ed. FAY reviewed high protein needs for wound healing, immune strength, high protein foods, and protein supplementation options. FAY contact information provided in case of further questions. Pt agrees to kenneth neri w/ breakfast tomorrow; FAY d/w dietary. Addendum: 11/05/18 at [address] Amended: Links added.
[2018-11-05 18:00] VITALS: BP 107/44
--- NOTE | 2018-11-05 18:10 | NUR ---
Problems reprioritized. Patient report given, questions answered & plan of care reviewed with LIZANDRO TOPETE.
[2018-11-05] MEDS: sennosides 8.6mg tablet PO SCH (20:41)
[2018-11-05] MEDS: celeCOXIB 100mg capsule PO SCH (20:42)
[2018-11-05] MEDS: insulin glargine (Lantus) pen - multi-dose SQ SCH (21:00)
[2018-11-05 22:00] VITALS: BP 105/47
[2018-11-06 06:30] VITALS: BP 120/43
--- NOTE | 2018-11-06 06:30 | NUR ---
Patient in room [facility]. I have received report from Shantal TOPETE and had the opportunity to ask questions and assume patient care.
[2018-11-06] MEDS: oxyCODONE/APAP 10/325mg tablet PO PRN (06:39)
[2018-11-06 07:05] LABS: BASOPHILS # (AUTO) 0.1 X10'3 (0-0.2); BASOPHILS % (AUTO) 0.6 % (0-1); EOSINOPHILS # (AUTO) 0.2 X10'3 (0-0.9); EOSINOPHILS % (AUTO) 2.1 % (0-6); HEMATOCRIT 34.1 % (35.0-45.0); HEMOGLOBIN 11.9 g/dl (12.0-16.0); LYMPHOCYTES # (AUTO) 2.5 X10'3 (1.1-4.8); LYMPHOCYTES % (AUTO) 24.3 % (21-51); MEAN CORPUSCULAR HEMOGLOBIN 32.4 PG (27.0-31.0); MEAN CORPUSCULAR HGB CONC 34.9 g/dL (33.0-36.5); MEAN CORPUSCULAR VOLUME 92.7 FL (78-98); MONOCYTES # (AUTO) 0.9 X10'3 (0-0.9); MONOCYTES % (AUTO) 8.3 % (2-12); NEUTROPHILS # (AUTO) 6.8 X10'3 (1.8-7.7); NEUTROPHILS % (AUTO) 64.7 % (42-75); PLATELET COUNT 341 X10'3 (140-440); RED BLOOD COUNT 3.68 X10'6 (4.20-5.60); RED CELL DISTRIBUTION WIDTH 13.1 % (11.5-14.5); WHITE BLOOD COUNT 10.5 X10'3 (4.5-11.0)
[2018-11-06] MEDS: chlorthalidone 25mg tablet PO SCH (08:05)
[2018-11-06] MEDS: fenofibrate 145mg tablet PO SCH (08:05)
[2018-11-06] MEDS: celeCOXIB 100mg capsule PO SCH ×2 (08:05→19:50)
[2018-11-06] MEDS: atenolol 50mg tablet PO SCH (08:05)
[2018-11-06] MEDS: ascorbic acid 500mg tablet PO SCH ×2 (08:06→19:51)
[2018-11-06] MEDS: aspirin 325mg tablet PO SCH (08:06)
[2018-11-06] MEDS: gabapentin 300mg capsule PO SCH ×3 (08:06→19:50)
[2018-11-06] MEDS: atorvastatin 20mg tablet PO SCH (08:06)
[2018-11-06] MEDS: potassium chloride 10mEq ER tablet PO SCH (08:06)
[2018-11-06] MEDS: multivitamins, therapeutics tablet PO SCH (08:06)
[2018-11-06] MEDS: ezetimibe 10mg tablet PO SCH (08:08)
[2018-11-06 10:00] VITALS: BP 105/49
[2018-11-06] MEDS ORDERED: ASPI-1 PO (12:45)
[2018-11-06 18:00] VITALS: BP 121/46
--- NOTE | 2018-11-06 18:22 | NUR ---
Patient report given to Leeann Allen RN
[2018-11-06] MEDS: sennosides 8.6mg tablet PO SCH (19:50)
[2018-11-06] MEDS: insulin glargine (Lantus) pen - multi-dose SQ SCH (21:00)
[2018-11-06 22:00] VITALS: BP 121/50
[2018-11-07 06:00] VITALS: BP 136/51
--- NOTE | 2018-11-07 06:02 | NUR ---
Problems reprioritized. Patient report given, questions answered & plan of care reviewed with EFREM Villalba.
--- NOTE | 2018-11-07 06:26 | NUR ---
I have received patient patient report from Leeann TOPETE
[2018-11-07 07:10] LABS: BASOPHILS # (AUTO) 0.1 X10'3 (0-0.2); BASOPHILS % (AUTO) 0.9 % (0-1); EOSINOPHILS # (AUTO) 0.3 X10'3 (0-0.9); EOSINOPHILS % (AUTO) 2.6 % (0-6); HEMATOCRIT 36.8 % (35.0-45.0); HEMOGLOBIN 12.6 g/dl (12.0-16.0); LYMPHOCYTES # (AUTO) 3.3 X10'3 (1.1-4.8); LYMPHOCYTES % (AUTO) 27.1 % (21-51); MEAN CORPUSCULAR HEMOGLOBIN 31.7 PG (27.0-31.0); MEAN CORPUSCULAR HGB CONC 34.1 g/dL (33.0-36.5); MEAN CORPUSCULAR VOLUME 92.8 FL (78-98); MEAN PLATELET VOLUME 8.1 FL (7.4-10.4); MONOCYTES # (AUTO) 0.9 X10'3 (0-0.9); MONOCYTES % (AUTO) 7.5 % (2-12); NEUTROPHILS # (AUTO) 7.6 X10'3 (1.8-7.7); NEUTROPHILS % (AUTO) 61.9 % (42-75); PLATELET COUNT 373 X10'3 (140-440); RED BLOOD COUNT 3.97 X10'6 (4.20-5.60); RED CELL DISTRIBUTION WIDTH 13.1 % (11.5-14.5); WHITE BLOOD COUNT 12.3 X10'3 (4.5-11.0)
[2018-11-07] MEDS: celeCOXIB 100mg capsule PO SCH (07:22)
[2018-11-07] MEDS: ascorbic acid 500mg tablet PO SCH (07:22)
[2018-11-07] MEDS: ezetimibe 10mg tablet PO SCH (07:22)
[2018-11-07] MEDS: potassium chloride 10mEq ER tablet PO SCH (07:22)
[2018-11-07] MEDS: atorvastatin 20mg tablet PO SCH (07:23)
[2018-11-07] MEDS: chlorthalidone 25mg tablet PO SCH (07:23)
[2018-11-07] MEDS: multivitamins, therapeutics tablet PO SCH (07:23)
[2018-11-07] MEDS: atenolol 50mg tablet PO SCH (07:23)
[2018-11-07] MEDS: gabapentin 300mg capsule PO SCH ×2 (07:23→12:42)
[2018-11-07] MEDS: fenofibrate 145mg tablet PO SCH (08:16)
[2018-11-07] MEDS: aspirin 325mg tablet PO SCH (08:16)
[2018-11-07 10:00] VITALS: BP 115/52
--- NOTE | 2018-11-07 14:15 | NUR ---
Patient discharged to home and had all personal belongings she was taken out in a wheel chair to her friends car. She was taught all discharge instructions prior to discharge.
== END 2018-11-07 14:19 | disposition home or self-care (01) | DRG 470 ==
LOC: PAS IN 06:41 → EDSTATUS 10:00 → ORTHO 4S 12:05
PROVIDERS: ADMIT Orthopaedic Surgery; ATTEND Orthopaedic Surgery
PROC: 3E0T3BZ Introduction of Anesthetic Agent into Peripheral Nerves and Plexi, Percutaneous Approach (ICD-10-PCS; 2018-11-04)
PROC: 0SRD0J9 Replacement of Left Knee Joint with Synthetic Substitute, Cemented, Open Approach (ICD-10-PCS; principal; 2018-11-04 08:32)
DX: M17.12 Unilateral primary osteoarthritis, left knee (principal); D62 Acute posthemorrhagic anemia; M21.162 Varus deformity, not elsewhere classified, left knee; E78.5 Hyperlipidemia, unspecified; I25.10 Atherosclerotic heart disease of native coronary artery without angina pectoris; I48.91 Unspecified atrial fibrillation; K21.9 Gastro-esophageal reflux disease without esophagitis; E66.9 Obesity, unspecified; N18.3 Chronic kidney disease, stage 3 (moderate); M25.762 Osteophyte, left knee; I12.9 Hypertensive chronic kidney disease with stage 1 through stage 4 chronic kidney disease, or unspecified chronic kidney disease; Z96.641 Presence of right artificial hip joint; E11.22 Type 2 diabetes mellitus with diabetic chronic kidney disease; Z98.51 Tubal ligation status; Z90.49 Acquired absence of other specified parts of digestive tract; Z79.899 Other long term (current) drug therapy; Z79.01 Long term (current) use of anticoagulants; Z79.82 Long term (current) use of aspirin; Z79.84 Long term (current) use of oral hypoglycemic drugs; Z88.0 Allergy status to penicillin; Z88.2 Allergy status to sulfonamides; Z88.1 Allergy status to other antibiotic agents; Z88.8 Allergy status to other drugs, medicaments and biological substances; Z86.73 Personal history of transient ischemic attack (TIA), and cerebral infarction without residual deficits; Z68.30 Body mass index [BMI] 30.0-30.9, adult
CPT/HCPCS: 36415; 73560; 80051; 80053; 81003; 82948; 83036; 85025; 85610; 85730; 86885; 86900; 86901; 87070; 93005; 97110; 97116; 97162; 97530; A6449; A6455; A7000; C1713; C1758; C1776; G0378; J0171; J0690; J1100; J1815; J2001; J2250; J2274; J2405; J2704; J2765; J2795; J3370; J3490; J7030; J7120

== ENCOUNTER 2023-04-14 18:01 | Emergency (ER) | payer BC, MEDICARE ==
[~2023-04-14] VITALS: Ht 149.9 cm; Wt 68.2 kg
[~2023-04-14 18:01] MED LIST changes: +ASPI-1 PO; -ASPI81TA52 PO; -DOCUMENT DATE & TIME OF BETA-BLOCKER PO ONE; -EZET10TA14 PO; +EZET10TA6 PO; -MESSAGE TO NURSING PO ONE; +POTA-192 PO; -POTA10TA19 PO; -VANCOMYCIN INJ 1000 MG in NORMAL SALINE 250ml IV.SOLN IV ONE; -acetaminophen 325mg tablet PO ONE; -cefazolin/dext.iso 2gm/100 ML IV ONE; -celeCOXIB 100mg capsule PO ONE; -famotidine 20mg tablet PO ONE; -gabapentin 300mg capsule PO ONE; -metoclopramide 5 mg/ml inj IV ONE; -oxyCODONE SR 10mg (sust. release) tab -2 tabs (20mg) PO ONE; -ringers solution, lacted 1,000 ML IV SCH; -tranexamic acid inj. 1,000 MG in normal saline 100 ML IV ONE
[2023-04-15 00:15] LABS: BASOPHILS # (AUTO) 0.1 X10'3 (0-0.2); BASOPHILS % (AUTO) 0.9 % (0-1); EOSINOPHILS # (AUTO) 0.3 X10'3 (0-0.9); EOSINOPHILS % (AUTO) 3.2 % (0-6); HEMATOCRIT 39.1 % (35.0-45.0); HEMOGLOBIN 13.4 g/dl (12.0-16.0); LYMPHOCYTES # (AUTO) 3.8 X10'3 (1.1-4.8); LYMPHOCYTES % (AUTO) 41.8 % (21-51); MEAN CORPUSCULAR HEMOGLOBIN 32.6 PG (27.0-31.0); MEAN CORPUSCULAR HGB CONC 34.3 g/dL (33.0-36.5); MONOCYTES # (AUTO) 0.5 X10'3 (0-0.9); NEUTROPHILS # (AUTO) 4.3 X10'3 (1.8-7.7); NEUTROPHILS % (AUTO) 48.1 % (42-75); PLATELET COUNT 305 X10'3 (140-440); RED BLOOD COUNT 4.12 X10'6 (4.20-5.60); RED CELL DISTRIBUTION WIDTH 13.2 % (11.5-14.5)
[2023-04-15 00:23] LABS: ALANINE AMINOTRANSFERASE 21 U/L (12-78); ALBUMIN 3.6 G/DL (3.4-5.0); ALKALINE PHOSPHATASE 122 IU/L (46-116); ANION GAP 4 (8-16); ASPARTATE AMINO TRANSFERASE 24 U/L (10-37); BILIRUBIN,TOTAL 0.4 MG/DL (0.1-1.0); BLOOD UREA NITROGEN 11 MG/DL (7-18); BUN/CREATININE RATIO 13.8 (10.0-20.0); CALCIUM 9.1 MG/DL (8.5-10.1); CHLORIDE 105 MMOL/L (99-107); GLUCOSE 109 MG/DL (70-104); POTASSIUM 3.9 MMOL/L (3.5-5.1); SODIUM 139 MMOL/L (135-145); TOTAL CARBON DIOXIDE 29.6 MMOL/L (24-32); TOTAL PROTEIN 7.1 G/DL (6.4-8.2); eCRCL 37 ML/MIN; eGFR 69 ML/MIN
[2023-04-15 00:31] LABS: PRO BRAIN NATRIURETIC PEPTIDE 456 PG/ML (0-450)
[2023-04-15 02:25] VITALS: BP 160/74; PULSE 59; RESP 18; TEMP 98.6; O2SAT 95
== END 2023-04-15 02:27 | disposition home or self-care (01) ==
LOC: ER 18:03
DX: S90.32XA Contusion of left foot, initial encounter (principal); R60.9 Edema, unspecified; E11.9 Type 2 diabetes mellitus without complications; Z88.0 Allergy status to penicillin; Z88.8 Allergy status to other drugs, medicaments and biological substances; Z88.2 Allergy status to sulfonamides; Z79.82 Long term (current) use of aspirin; Z79.899 Other long term (current) drug therapy; X50.1XXA Overexertion from prolonged static or awkward postures, initial encounter; Y93.89 Activity, other specified; Y92.89 Other specified places as the place of occurrence of the external cause; Y99.8 Other external cause status
CPT/HCPCS: 36415; 71045; 73630; 80053; 83880; 84484; 85025; 93005; 99285